=== PATIENT | male | born 1980 | race Two or more races ===

== ENCOUNTER 2017-10-11 19:23 | Emergency (ER) | payer MEDICAID ==
[2017-10-11 19:32] VITALS: BP 127/86
--- NOTE | 2017-10-11 20:03 | EDPHY ---
H & P Stated Complaint: ETOH WITHDRAWAL X 2 DAYS, ANXIETY, INSOMNIA, Time Seen by Provider: 10/11/17 19:34 - Personal History Current Tetanus Diphtheria and Acellular Pertussis (TDAP): No - Medical/Surgical History Hx Asthma: No Hx Chronic Respiratory Disease: No Hx Diabetes: No Hx Cardiac Disease: No Hx Renal Disease: No Hx Cirrhosis: No Hx Alcoholism: Yes Hx HIV/AIDS: No Hx Splenectomy or Spleen Trauma: No Other PMH: ANXIETY, ETOH ABUSE - Social History Smoking Status: Heavy smoker Constitutional: Initial Vital Signs Temperature (C) 36.7 C 10/11/17 19:27 Heart Rate 70 10/11/17 19:27 Respiratory Rate 18 10/11/17 19:27 Blood Pressure 127/86 H 10/11/17 19:27 O2 Sat (%) 96 10/11/17 19:27 O2 Delivery Mode Room Air Allergies/Adverse Reactions: No Known Allergies Allergy (Unverified 10/11/17 19:33) Medical Decision Making ED Course/Re-evaluation: CHIEF COMPLAINT: Concern for alcohol withdrawal. HISTORY OF PRESENT ILLNESS: The patient is a 37 year old male who presents for assistance with alcohol withdrawal as well as requesting referrals to local physicians. He states "I need an internal medicine referral stacie. I have alcohol sweats. I would like to make an appointment to go to the [facility] tomorrow." He feels generally well but wants assistance with alcohol recovery and a referral to the addiction recovery center. He also would like a referral to neurology and internal medicine. He would like a medication to help with withdrawal symptoms. He states he cannot to the [facility] until tomorrow because he has two other appointments in the morning, but that he will go in the afternoon. Patient denies any injuries denies loss of consciousness denies any recent trauma. Patient denies co-ingestion. Patient denies any psychiatric history, specifically ramos or bipolar disorder. He states "everybody's trying to tell me that but I'm not". Patient denies suicidal or homicidal behavior. Denies recent illness. REVIEW OF SYSTEMS: A comprehensive 10 system review of systems is otherwise negative aside from elements mentioned in the history of present illness and medical decision making. PHYSICAL EXAM: General Appearance: Alert, well hydrated, appropriate, and non-toxic appearing. Head: Atraumatic without scalp tenderness or obvious injury Eyes: Pupils equal, round, reactive to light and accommodation, EOMI, no trauma , no injection. Throat: Mucus membranes moist. Neck: Supple, nontender. Respiratory: No retractions, no distress, no wheezes, and no accessory muscle use. Cardiovascular: Regular rate and rhythm. Good capillary refill all extremities. Musculoskeletal: Normal active ROM of all extremities, atraumatic. Neurological: Alert, appears manic, pressured speech. Nonfocal neuro exam. Skin: No rashes, good turgor, no nodules on palpation. PAST MEDICAL HISTORY: Anxiety. PAST SURGICAL HISTORY: Noncontributory. SOCIAL HISTORY: Lives in [place]. Single. Alcohol use. DIFFERENTIAL DIAGNOSIS: Includes but not limited to alcohol withdrawal, anxiety, alcohol intoxication, polysubstance abuse. MEDICAL DECISION [id number] y/o male presents with concerns related to alcohol withdrawals. He appears manic throughout my interview and has pressured speech. He is standing and taking notes regarding our conversation. He does not appear overly intoxicated. He reports he feels he will develop tremors soon. He wants a referral to the [facility] but does not want to go tonight. I let him know he can walk in any time. He would like a prescription to help with withdrawal symptoms. Plan to discharge home in good condition with prescription for Ativan for withdrawal symptom relief. Referrals to PCP and neurology provided as requested. He is comfortable with this plan and would like to leave the emergency department now as he has plans to meet a friend soon. - Data Points Medications Given: Discontinued Medications Lorazepam (Ativan) 1 mg PO EDNOW ONE Stop: 10/11/17 20:11 Last Admin: 10/11/17 20:20 Dose: 1 mg Departure - Departure Disposition: Home, Routine, Self-Care Clinical Impression: C/o alcohol withdrawal, Alcohol use Condition: Good Instructions: Alcohol Withdrawal (ED) Additional Instructions: 1. Follow up at the [facility] tomorrow as we discussed. The address can be found below. You may present at any time tomorrow following your other appointments. 2. Take Ativan as prescribed for withdrawal symptoms. 3. We have provided a referral to a primary care provider and a neurologist as requested. Referrals: [facility] Detox 24 Hours [Outside] - As per Instructions Calvin Glaser MD [Medical Doctor] - As per Instructions Lali Gutierrez MD [[facility] Primary Care Provider] - As per Instructions Report Scribed for: Tra [place] Report Scribed by: Rut Forbes Date of Report: 10/11/17 Time of Report: 20:03
[2017-10-11] MEDS ORDERED: LORazepam 1 MG TAB PO ONE (20:10)
== END 2017-10-11 20:23 | disposition home or self-care (01) ==
LOC: EEVIPCON 19:23
DX: F10.231 Alcohol dependence with withdrawal delirium (principal); F17.200 Nicotine dependence, unspecified, uncomplicated